=== PATIENT | female | born 1975 | race Caucasian/White ===

== ENCOUNTER 2018-06-15 08:06 | Outpatient (CLI) | payer MEDICARE, MEDICAID ==
--- NOTE | 2018-06-15 10:32 | CT ---
CT HEAD WITHOUT CONTRAST: Date: 06/15/18 INDICATION: Arachnoid cyst. There are no comparison studies available. FINDINGS: Postoperative changes are noted in the left occipital bone with craniotomy defect at this location. There is a ventriculostomy catheter entering via the left frontal bone through the left frontal lobe, crossing the lateral ventricles. The tip is located to the right of midline in the right suprasellar cistern region. The ventricles are normal size and position. No intracranial hemorrhage, mass, or acute infarct. The sinuses and mastoids are well aerated. IMPRESSION: Postop changes left occipital bone. Ventriculostomy catheter left frontal lobe as described above. Ve ntricles have normal size and position. POS: [facility]
--- NOTE | 2018-06-15 10:53 | RAD ---
SHUNTOGRAM FIVE VIEWS: History: Assess ventriculoscopy catheter and shunt tubing. History of arachnoid cyst with shunt janet ter. Assess shunt tubing integrity. FINDINGS: The catheter enters via the left frontal bone. [place] at the left frontal bone is seen. The shunt tubing is patent along the skull base and left neck. The tubing overlying the left chest appears inta ct. The tubing traverses the midabdomen and is coiled in the lower abdomen/pelvis. There are two radiopaque devices in the pelvis, possibly representing prior tubal ligation devices. The bowel gas pattern is unremarkable. Cholecystectomy clips are seen. IMPRESSION: Shunt catheter appears intact. POS: [facility]
== END 2018-06-15 08:07 | disposition home or self-care (01) ==
LOC: TBSIIMAG 08:06
PROVIDERS: ATTEND Neurological Surgery
DX: G93.0 Cerebral cysts (principal); Z98.2 Presence of cerebrospinal fluid drainage device
CPT/HCPCS: 70450; 75809

== ENCOUNTER 2018-09-14 10:58 | Outpatient (CLI) | payer MEDICARE ==
--- NOTE | 2018-09-14 11:54 | RAD ---
PA AND LATERAL VIEWS CHEST: HISTORY: Moderate persistent reactive airway disease. FINDINGS: The turner size is normal. The lungs are expanded without focal areas of consolidation, pneumothoraces , or pleural effusions. No acute osseous abnormalities are seen. IMPRESSION: No radiographic evidence of acute cardiopulmonary process. POS: [facility]
--- NOTE | 2018-09-14 11:56 | RAD ---
SINUS SERIES 3 VIEWS: HISTORY: Cough, congestion, upper respiratory infection. FINDINGS: The frontal, sphenoid, maxillary, and ethmoid air cells are clear. No fluid or mucosal change. Vent ricular peritoneal shunt tube is noted. Hyperostosis frontalis interna is incidentally seen. IMPRESSION: Negative sinuses. POS: [facility]
== END 2018-09-14 10:59 | disposition home or self-care (01) ==
LOC: BICRAD 10:58
PROVIDERS: ATTEND Internal Medicine
DX: J45.40 Moderate persistent asthma, uncomplicated (principal); J32.9 Chronic sinusitis, unspecified
CPT/HCPCS: 70220; 71046

== ENCOUNTER 2020-12-22 13:04 | Outpatient (CLI) | payer MEDICARE, OTHER | END 2020-12-22 13:05 | disposition home or self-care (01) | LOC: BICCT 13:04 | PROVIDERS: ATTEND Neurological Surgery | DX: G96.01 Cranial cerebrospinal fluid leak, spontaneous (principal) | CPT/HCPCS: 70450 ==

== ENCOUNTER 2021-10-15 12:27 | Outpatient (CLI) | payer OTHER | END 2021-10-15 12:28 | disposition home or self-care (01) | LOC: BICCT 12:27 | DX: G91.9 Hydrocephalus, unspecified (principal); Z98.890 Other specified postprocedural states | CPT/HCPCS: 70450 ==